=== PATIENT | female | born 1980 | race African-American/Black ===

== ENCOUNTER 2023-10-15 06:37 | Emergency (ER) | payer MEDICAID, SELFPAY ==
[2023-10-15 06:50] VITALS: BP 95/72; PULSE 80; RESP 20; TEMP 36.8; O2SAT 100; BMI 25.6
--- NOTE | 2023-10-15 07:01 | XRR_ITS ---
PROCEDURE INFORMATION: Exam: XR Chest Exam date and time: 10/15/2023 7:30 AM Age: 43 years old Clinical indication: Cough; Additional info: Chest pain, cough TECHNIQUE: Imaging protocol: Radiologic exam of the chest. Views: 2 views. COMPARISON: No relevant prior studies available. FINDINGS: Lungs: Unremarkable. No consolidation. Pleural spaces: Unremarkable. No pleural effusion. No pneumothorax. Heart/Mediastinum: Unremarkable. No cardiomegaly. Bones/joints: Unremarkable. XR/XR chest 2V* [id number] IMPRESSION: No acute findings.
[2023-10-15 07:02] VITALS: BP 95/72; PULSE 80; RESP 20; TEMP 36.8; O2SAT 100
--- NOTE | 2023-10-15 07:03 | ECG_ITS ---
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 Measurements Intervals [place] Rate: 77 P: 30 WA: 176 QRS: -2 QRSD: 82 T: 22 QT: 368 QTc: 417 Interpretive Statements SINUS RHYTHM INFERIOR MYOCARDIAL INFARCTION , PROBABLY OLD [40+ ms Q WAVE AND/OR ST/T ABNORMALITY IN II/aVF] No previous ECG available for comparison Electronically Signed On 10-15-2023 20:28:21 CDT by El Freeman M.D. [id number]
[2023-10-15 07:20] LABS: Basophils % 0.8 %; Eosinophils # 0.6 10^3/uL (0.0-0.8); Eosinophils % 11.7 %; Hematocrit 33.8 % (36-47); Lymphocytes # 1.8 10^3/uL (0.8-4.8); Lymphocytes % 38.2 %; Mean Corpuscular HGB Conc 32.2 g/dL (30-55); Mean Corpuscular Hemoglobin 27.3 pg (27-33); Mean Corpuscular Volume 84.5 fl (85-98); Mean Platelet Volume 11.4 fL (7.4-10.4); Monocytes # 0.4 10^3/uL (0.2-0.9); Monocytes % 9.2 %; Neutrophils % 39.9 %; Nucleated Red Blood Cells % 0 %; Platelet Count 189 10^3/cmm (157-399); Red Cell Distribution Width 14.1 % (12.1-15.1); White Blood Count 4.77 10^3/uL (3.29-11.43)
[2023-10-15 07:42] LABS: Alanine Aminotransferase 24 U/L (0-33); Albumin Level 3.5 g/dL (3.5-5.2); Alkaline Phosphatase 104 U/L (35-105); Blood Urea Nitrogen 12 mg/dL (6-20); Calcium 8.4 mg/dL (8.5-10.5); Carbon Dioxide 21 mmol/L (22-29); Chloride 103 mmol/L (98-107); Creatinine Clr Calc Pharmacy 125.7121; Glomerular Filtration Rate 162.2 mL/min (90-130); Glucose 93 mg/dL (65-115); Osmolality Calculated 279 mOsm/kg (285-295); Sodium 135 mmol/L (136-145); Total Bilirubin 0.2 mg/dL (0.15-1.2); Total Protein 6.5 g/dL (6.6-8.7)
[2023-10-15 07:43] LABS: Troponin(5th) Baseline < 6 ng/L (0-10)
[2023-10-15 07:45] LABS: Anion Gap 15.2 (5-19); Aspartate Amino Transferase 28 U/L (0-32); Potassium 4.2 mmol/L (3.5-5.1)
[2023-10-15 07:57] LABS: Add Urine Microscopic? NO; Charge for UA Resulting for Rev
[2023-10-15 08:03] LABS: Bilirubin Urine Neg (Negative); Blood Urine Neg (Negative); Glucose Urine UA Norm (Normal); Ketones Urine Negative (Negative); Leukocyte Esterase Urine Negative (Negative); Nitrate Urine Negative (Negative); Protein Urine Neg (Negative); Specific Gravity, Urine 1.015 (1.005-1.030); Urine Appearance Clear (CLEAR); Urine Color Yellow (Yellow); Urobilinogen Urine Norm (Negative); pH Urine 7 (5-7)
--- NOTE | 2023-10-15 08:16 | ED_ITS ---
HPI - Chest Pain 2 General: Chief Complaint: Upper Respiratory Infection Stated Complaint: CP WHEN COUGHING Time Seen by Provider: 10/15/23 06:52 History of Present Illness: This patient is a 43-year-old presenting with chest pain and cough. She reports that she has been coughing for 5 days. She has been coughing up copious amounts of sputum which she says is clear or white. The chest pain occurs with coughing but also intermittently at other times. She feels short of breath. She also has sinus congestion. She said that since moving to the area about a year and a half ago she has had problems with allergies. She does not take any allergy medications. She did try some Benadryl and a cough medicine [id number] without much relief. She reports a history of bipolar disorder but says she has not taken her meds in the last 2 days. She was concerned that with the chest pain it might be dangerous to continue her medicines. She also says that she has been told she has very high cholesterol. She is not on any medicines for that. She does not think she has a history of high blood pressure. She denies fevers or chills. No vomiting. She had diarrhea a few days ago but not since. No urinary symptoms. She is not a smoker and never has been a smoker. She denies current drug use or alcohol use. Physical Exam 2 Const: COMMON NORMALS: no acute distress, patient oriented x3, no limitations and alert GENERAL APPEARANCE: cooperative and comfortable HENMT: HEAD & SCALP: normal to inspection FACE & SINUS: normal facial exam Eye: GENERAL EYE: appearance normal, both eyes and all related structures Neck/C-Spine: COMMON NORMALS: supple, no meningeal signs and no JVD Chest: COMMONS NORMALS: normal inspection of the chest Resp: COMMON NORMALS: normal respiratory effort and No use of accessory muscles AUSCULTATION: wheezes (Scattered, mild) Cardio: COMMON NORMALS: no JVD, regular rate, regular rhythm and No murmurs present (Cardio) RATE: regular rate RHYTHM: regular rhythm GI: COMMON NORMALS: Normal to inspection, nondistended, normoactive bowel sounds present, Soft to palpation and non-tender INSPECTION: Yes normal to inspection AUSCULTATION: Yes normoactive bowel sounds PALPATION: Yes Soft to palpation Back/Pelvis: COMMON NORMALS: thoracic and lumbar spine normal to inspection Extremity: COMMON NORMALS: normal to inspection Neuro: COMMON NORMALS: patient oriented x3, moves all extremities, no focal motor deficits and no sensory deficits noted SENSORIUM/ORIENTATION: Yes alert MENINGEAL SIGNS: Yes no meningeal signs Psych: COMMON NORMALS: mental status grossly normal, cooperative and normal affect Skin: COMMON NORMALS: no rashes or lesions noted and turgor normal GENERAL SKIN EXAM: no rashes or lesions noted and turgor normal Course 2 Vital Signs: Vital signs: Vital Signs Temperature 98.2 F 10/15/23 07:02 Pulse Rate 74 10/15/23 09:04 Respiratory Rate 16 10/15/23 08:57 Blood Pressure 102/76 10/15/23 09:25 Pulse Oximetry 98 10/15/23 08:57 Oxygen Delivery Me thod Room Air 10/15/23 08:57 MDM - Chest Pain Medical Decision Making Chest pain is most likely related to the cough. However she does mention risk factors of markedly elevated hyper lipidemia. She does not have prior records here EKG, troponin. Chest x-ray to look for possible pneumonia. Labs and valproate level. Symptomatic treatment. Workup is negative including negative troponin x 2, COVID swab. She is anemic. Chest x-ray was clear. EKG with suggestion of prior inferior CT. No acute changes. Lab Data 10/15/23 07:14 10/15/23 07:14 Radiology Impressions Chest X-Ray 10/15/23 07:01 IMPRESSION: No acute findings. Laboratory Results WBC 4.77 10^3/uL (3.29-11.43) 10/15/23 07:14 RBC 4.00 10^6/uL (3.85-5.65) 10/15/23 07:14 Hgb 10.90 g/dL (11.27-16.99) L 10/15/23 07:14 Hct 33.8 % (36-47) L 10/15/23 07:14 MCV 84.5 fl (85-98) L 10/15/23 07:14 MCH 27.3 pg (27-33) 10/15/23 07:14 MCHC 32.2 g/dL (30-55) 10/15/23 07:14 RDW 14.1 % (12.1-15.1) 10/15/23 07:14 Plt Count 189 10^3/cmm (157-399) 10/15/23 07:14 MPV 11.4 fL (7.4-10.4) H 10/15/23 07:14 Neut % (Auto) 39.9 % 10/15/23 07:14 Lymph % (Auto) 38.2 % 10/15/23 07:14 [place] % (Auto) 9.2 % 10/15/23 07:14 Eos % (Auto) 11.7 % 10/15/23 07:14 Baso % (Auto) 0.8 % 10/15/23 07:14 Neut # (Auto) 1.90 10^3/uL (1.8-7.7) 10/15/23 07:14 Lymph # (Auto) 1.8 10^3/uL (0.8-4.8) 10/15/23 07:14 [place] # (Auto) 0.4 10^3/uL (0.2-0.9) 10/15/23 07:14 Eos # (Auto) 0.6 10^3/uL (0.0-0.8) 10/15/23 07:14 Baso # (Auto) 0.0 10^3/uL (0.0-0.1) 10/15/23 07:14 Nucleated RBC % (auto) 0 % 10/15/23 07:14 Nucleated RBCs # 0.0 /100WBC 10/15/23 07:14 Sodium 135 mmol/L (136-145) L 10/15/23 07:14 Potassium 4.2 mmol/L (3.5-5.1) 10/15/23 07:14 Chloride 103 mmol/L (98-107) 10/15/23 07:14 Carbon Dioxide 21 mmol/L (22-29) L 10/15/23 07:14 Anion Gap 15.2 (5-19) 10/15/23 07:14 BUN 12 mg/dL (6-20) 10/15/23 07:14 Creatinine 0.5 mg/dL (0.5-0.9) 10/15/23 07:14 GFR Calculation 162.2 mL/min (90-130) H 10/15/23 07:14 Glucose 93 mg/dL (65-115) 10/15/23 07:14 Calculated Osmolality 279 mOsm/kg (285-295) L 10/15/23 07:14 Calcium 8.4 mg/dL (8.5-10.5) L 10/15/23 07:14 Total Bilirubin 0.2 mg/dL (0.15-1.2) 10/15/23 07:14 AST 28 U/L (0-32) 10/15/23 07:14 ALT 24 U/L (0-33) 10/15/23 07:14 Alkaline Phosphatase 104 U/L (35-105) 10/15/23 07:14 Troponin T Baseline < 6 ng/L (0-10) 10/15/23 07:14 Troponin T 120 Minute 6.00 ng/L (0-10) 10/15/23 09:16 Delta Troponin T 0.71270 ABS# (0-10) 10/15/23 09:16 Total Protein 6.5 g/dL (6.6-8.7) L 10/15/23 07:14 Albumin 3.5 g/dL (3.5-5.2) 10/15/23 07:14 Globulin 3.0 g/dL (1.3-4.6) 10/15/23 07:14 Urine Color Yellow (Yellow) 10/15/23 07:50 Urine Appearance Clear (CLEAR) 10/15/23 07:50 Urine pH 7 (5-7) 10/15/23 07:50 Ur Specific [place] 1.015 (1.005-1.030) 10/15/23 07:50 Urine Protein Neg (Negative) 10/15/23 07:50 Urine Glucose (UA) Norm (Normal) 10/15/23 07:50 Urine Ketones Negative (Negative) 10/15/23 07:50 Urine Blood Neg (Negative) 10/15/23 07:50 Urine Nitrate Negative (Negative) 10/15/23 07:50 Urine Bilirubin Neg (Negative) 10/15/23 07:50 Urine Urobilinogen Norm mg/dL (Negative) 10/15/23 07:50 Ur Leukocyte Esterase Negative (Negative) 10/15/23 07:50 SARS-CoV-2 Ag (Rapid) negative (Negative) 10/15/23 Unknown XR interpretation done by ED provider, pending radiology final review Discharge Plan Discharge Patient Disposition: Home Clinical Impression: Allergic rhinitis, Allergic bronchitis, Chest pain, Anemia Condition: Stable Prescriptions: New cetirizine [Zyrtec] 10 mg tablet 10 mg PO DAILY Qty: 30 0RF prednisone 20 mg tablet 40 mg PO DAILY 3 Days Qty: 6 0RF Discharge Orders: Discharge ED (Routine); Ordered 10/15/23 Ordered By: Stefanie Mays Referrals: Truong Cuba MD [Staff Physician] - Patient Instructions: Opioid Safety, Pain Management Coding Level of Care Code ED National Sales Consultant for Alyx Mcpherson
[2023-10-15 08:57] VITALS: PULSE 78; RESP 16; O2SAT 98
[2023-10-15] MEDS: ipratropium-albuterol 3 mL Neb INHALATION (09:00)
[2023-10-15 09:04] VITALS: PULSE 74
[2023-10-15 09:25] VITALS: BP 102/76
[2023-10-15 09:43] LABS: Troponin 5 2HR Delta 0.00001 ABS# (0-10)
[2023-10-15 10:25] LABS: SARS Covid-2 Antigen negative (Negative)
== END 2023-10-15 11:15 | disposition home or self-care (01) ==
PROVIDERS: Emergency Provider Emergency Medicine
DX: J30.9 Allergic rhinitis, unspecified (principal); J45.909 Unspecified asthma, uncomplicated; R07.9 Chest pain, unspecified; D64.9 Anemia, unspecified; Z11.52 Encounter for screening for COVID-19
CPT/HCPCS: 36415; 71046; 80053; 81003; 84484; 85025; 87426; 93005; 94640; 99285

== ENCOUNTER 2023-11-25 01:34 | Emergency (ER) | payer MEDICAID, SELFPAY ==
[2023-11-25 01:36] VITALS: BP 117/73; PULSE 91; RESP 16; O2SAT 96; BMI 27.8
--- NOTE | 2023-11-25 01:59 | XRR_ITS ---
PROCEDURE INFORMATION: Exam: XR Abdomen Exam date and time: 11/25/2023 2:05 AM Age: 43 years old Clinical indication: Abdominal pain; Patient HX: C/O abd pain with constipation; Additional info: Abd pain constipation TECHNIQUE: Imaging protocol: Radiologic exam of the abdomen. Views: Frontal supine view of the abdomen. 1 View. COMPARISON: CR (CHEST, ) 10/15/2023 7:30 AM FINDINGS: Evaluation is limited due to patient body habitus. Gastrointestinal tract: Prominent colonic bowel gas and stool. Bones/joints: Unremarkable. Soft tissues: Panniculus and skin fold. XR/XR abdomen 1V* [id number] IMPRESSION: Prominent colonic bowel gas and stool.
--- NOTE | 2023-11-25 02:22 | ED_ITS ---
HPI - Abdominal Pain General: Chief Complaint: Abdominal Pain Stated Complaint: ABD PAIN Time Seen by Provider: 11/25/23 01:38 History of Present Illness: Patient was in the ER with complaints of lower abdominal pain starting about an hour ago. Patient says she feels her chest have a bowel movement but she is unable to. Patient denies any nausea vomiting fever chills. Review of Systems General: Reports: 10 or more systems reviewed and unremarkable except in HPI and below Physical Exam Const: COMMON NORMALS: no acute distress, average body habitus, patient oriented x3, no limitations, healthy appearing, alert and well nourished Neck/C-Spine: COMMON NORMALS: no JVD Resp: COMMON NORMALS: normal respiratory effort, No retractions, No use of accessory muscles and clear to auscultation bilaterally AUSCULTATION: clear to auscultation bilaterally Cardio: COMMON NORMALS: no JVD, regular rate, regular rhythm, S1 normal heart sound present, S2 normal heart sound present, No gallops present (Cardio), No clicks present (Cardio), No murmurs present (Cardio) and No rub (Cardio) RATE: regular rate RHYTHM: regular rhythm HEART SOUNDS: S1 normal heart sound present and S2 normal heart sound present GI: COMMON NORMALS: Normal to inspection, nondistended, normoactive bowel sounds present, Soft to palpation, non-tender, No hepatosplenomegaly present and no masses PALPATION: Yes Soft to palpation and Yes No hepatosplenomegaly present Neuro: COMMON NORMALS: patient oriented x3 SENSORIUM/ORIENTATION: Yes alert Course Vital Signs: Vital signs: Vital Signs Pulse Rate 91 11/25/23 01:36 Respiratory Rate 16 11/25/23 01:36 Blood Pressure 117/73 11/25/23 01:36 Pulse Oximetry 96 11/25/23 01:36 Oxygen Delivery Me thod Room Air 11/25/23 01:36 MDM - Abdominal Pain Medical Decision Making X-ray showed prominent stool. Patient was given Dulcolax 10 mg and Colace 200 mg here will she will be prescribed. SHEREEN Colace to go home with. Patient is to follow-up with her PCP within next 7 days for further evaluation and treatment. Differential Diagnosis Likely constipation Medical Records I reviewed the patient's medical records. Lab Data I reviewed the patient's lab results. XR interpretation done by ED provider, pending radiology final review Discharge Plan Discharge Patient Disposition: Home Clinical Impression: Constipation Qualifiers: Constipation type: unspecified constipation type Qualified Code(s): K59.00 - Constipation, unspecified Condition: Stable Prescriptions: New sennosides-docusate sodium 8.6-50 mg tablet 1 tab-cap PO BID PRN (Reason: constipation) Qty: 20 0RF No Action Zyrtec 10 mg tablet 10 mg PO DAILY Qty: 30 0RF Discharge Orders: Discharge ED (Routine); Ordered 11/25/23 Ordered By: Corbin Barreto Patient Instructions: Abdominal Pain - Adult, Constipation - Adult Activity Restrictions/Additional Instructions: Your x-ray showed you are full of stool. You have been given stool softeners as well as laxatives in the ER and a prescription was sent to your pharmacy. Please use them as directed. Please follow-up with your family practice physician within the next 7 days for further evaluation and treatment. Coding Level of Care Code ED Lock And Dam Operator for Alyx Mcpherson
[2023-11-25] MEDS: bisacodyl 5 mg Tablet 10 MG PO (02:34)
[2023-11-25] MEDS: docusate sodium 100 mg Capsule 200 MG PO (02:35)
[2023-11-25 02:39] VITALS: BP 111/86; PULSE 88; RESP 16; TEMP 36.7; O2SAT 99
== END 2023-11-25 02:40 | disposition home or self-care (01) ==
PROVIDERS: Emergency Provider Emergency Medicine
DX: K59.00 Constipation, unspecified (principal)
CPT/HCPCS: 74018; 99283

== ENCOUNTER 2024-05-14 01:04 | Emergency (ER) | payer MEDICAID, SELFPAY ==
[2024-05-14 01:06] VITALS: BP 156/104; PULSE 72; RESP 16; TEMP 36.7; O2SAT 97; BMI 31.1
--- NOTE | 2024-05-14 01:13 | W.ED.ABDPA2 ---
HPI - Abdominal Pain General: Chief Complaint: Abdominal Pain Stated Complaint: ABD PAIN Time Seen by Provider: 05/14/24 01:05 History of Present Illness: 43-year-old female who presents emerged with abdominal pain. She says she been having issues for about a week. She is been having normal bowel movements. She says she has been passing a lot of gas. Abdominal pain is diffuse she is tender throughout. She points mainly to the middle when asked where it hurts. No nausea or vomiting. She says she could hear her belly grumbling today which is why she called an ambulance to come to the emergency room. Related Data Date of Last Menstrual Period: 04/24/24 Previous Rx's Medication Instructions Recorded cetirizine 10 mg tablet (Zyrtec) 10 mg PO DAILY #30 tabs 10/15/23 sennosides 8.6 mg-docusate sodium 1 tab-cap PO BID PRN constipation 11/25/23 50 mg tablet #20 tabs Allergies Allergy/AdvReac Type Severity Reaction Status Date / Time No Known Allergies Allergy Verified 05/14/24 01:11 Review of Systems Narrative: Constitutional symptoms: Negative except as documented in HPI. Skin symptoms: Negative except as documented in HPI. Eye symptoms: Negative except as documented in HPI. ENMT symptoms: Negative except as documented in HPI. Respiratory symptoms: Negative except as documented in HPI. Cardiovascular symptoms: Negative except as documented in HPI. Gastrointestinal symptoms: Negative except as documented in HPI. Genitourinary symptoms: Negative except as documented in HPI. Musculoskeletal symptoms: Negative except as documented in HPI. Neurologic symptoms: Negative except as documented in HPI. Psychiatric symptoms: Negative except as documented in HPI. Endocrine symptoms: Negative except as documented in HPI. [facility] ED Female Reproductive History: Date of last menstrual period: 04/24/24 Physical Exam Narrative: EXAM NARRATIVE: General: Alert, no acute distress. Skin: Warm, dry. Head: Normocephalic, atraumatic. Neck: Supple, trachea midline. Eye: Extraocular movements are intact. Ears, nose, mouth and throat: mucosa moist. Cardiovascular: Regular, Normal peripheral perfusion. Respiratory: Lungs are clear to auscultation, respirations are non-labored, breath sounds are equal, Symmetrical chest wall expansion. Gastrointestinal: Soft, mild diffuse tenderness, Non distended Musculoskeletal: Normal ROM, no deformity. Neurological: Alert and oriented, No focal neurological deficit observed. Psychiatric: Cooperative, appropriate mood & affect. Course Vital Signs: Vital signs: Vital Signs Temperature 98.1 F 05/14/24 01:06 Pulse Rate 72 05/14/24 01:06 Respiratory Rate 16 05/14/24 01:06 Blood Pressure 156/104 05/14/24 01:06 Pulse Oximetry 97 05/14/24 01:06 Oxygen Delivery Me thod Room Air 05/14/24 01:06 MDM - Abdominal Pain Medical Decision Making Medical decision making: Differential diagnosis including but not limited to and based on the above HPI, review of systems and physical exam: In this patient with epigastric pain differential would include cholelithiasis or cholecystitis. Hepatitis. Diverticulitis. Constipation. UTI. colitis. small bowel obstruction. crohn's flare. pancreatitis. gastritis. peptic ulcer. also concern for acute cardiac event. Orders placed to evaluate differential diagnosis based on the above differential, HPI and physical exam Lab Review: Laboratory results were reviewed and interpreted by myself the emergency room physician. No leukocytosis. No anemia. No renal failure. Urinalysis is negative for infection. CT of the abdomen pelvis shows no acute process. She does have some stones in her gallbladder but no cholecystitis. This was reviewed and interpreted by myself the emergency room physician. I also reviewed the radiology report. I reviewed the patient's medical record. Reexamination: Patient remained stable. No increased work of breathing. No altered mental status. No focal motor deficits. Assessment and plan: Abdominal pain - Discharged home - Discussed plan with patient. Answered any questions. - Evaluation and treatment of this problem were appropriate in the emergency setting. Lab Data 05/14/24 01:17 05/14/24 01:17 Labs/Radiology: Radiology Impressions Abdomen/Pelvis CT 05/14/24 01:57 IMPRESSION: 1. Image quality degraded by motion artifact. 2. Cholelithiasis. Laboratory Results WBC 8.40 10^3/uL (3.29-11.43) 05/14/24 01:17 RBC 4.41 10^6/uL (3.85-5.65) 05/14/24 01:17 Hgb 11.70 g/dL (11.27-16.99) 05/14/24 01:17 Hct 36.2 % (36-47) 05/14/24 01:17 MCV 82.1 fl (85-98) L 05/14/24 01:17 MCH 26.5 pg (27-33) L 05/14/24 01:17 MCHC 32.3 g/dL (30-55) 05/14/24 01:17 RDW 13.9 % (12.1-15.1) 05/14/24 01:17 Plt Count 218 10^3/cmm (157-399) 05/14/24 01:17 MPV 11.7 fL (7.4-10.4) H 05/14/24 01:17 Neut % (Auto) 47.5 % 05/14/24 01:17 Lymph % (Auto) 37.7 % 05/14/24 01:17 [place] % (Auto) 7.1 % 05/14/24 01:17 Eos % (Auto) 6.7 % 05/14/24 01:17 Baso % (Auto) 0.6 % 05/14/24 01:17 Neut # (Auto) 3.99 10^3/uL (1.8-7.7) 05/14/24 01:17 Lymph # (Auto) 3.2 10^3/uL (0.8-4.8) 05/14/24 01:17 [place] # (Auto) 0.6 10^3/uL (0.2-0.9) 05/14/24 01:17 Eos # (Auto) 0.6 10^3/uL (0.0-0.8) 05/14/24 01:17 Baso # (Auto) 0.1 10^3/uL (0.0-0.1) 05/14/24 01:17 Nucleated RBC % (auto) 0 % 05/14/24 01:17 Nucleated RBCs # 0.0 /100WBC 05/14/24 01:17 Sodium 136 mmol/L (136-145) 05/14/24 01:17 Potassium 4.4 mmol/L (3.5-5.1) 05/14/24 01:17 Chloride 100 mmol/L (98-107) 05/14/24 01:17 Carbon Dioxide 24 mmol/L (22-29) 05/14/24 01:17 Anion Gap 16.4 (5-19) 05/14/24 01:17 BUN 19 mg/dL (6-20) 05/14/24 01:17 Creatinine 0.6 mg/dL (0.5-0.9) 05/14/24 01:17 GFR Calculation 131.4 mL/min (90-130) H 05/14/24 01:17 Glucose 100 mg/dL (65-115) 05/14/24 01:17 Calculated Osmolality 284 mOsm/kg (285-295) L 05/14/24 01:17 Lactic Acid 0.6 mmol/L (0.5-2.2) 05/14/24 01:17 Calcium 8.9 mg/dL (8.5-10.5) 05/14/24 01:17 Total Bilirubin 0.2 mg/dL (0.15-1.2) 05/14/24 01:17 AST 37 U/L (0-32) H 05/14/24 01:17 ALT 35 U/L (0-33) H 05/14/24 01:17 Alkaline Phosphatase 132 U/L (35-105) H 05/14/24 01:17 C-Reactive Protein 5.9 mg/L (0.0-4.9) H 05/14/24 01:17 Total Protein 7.6 g/dL (6.6-8.7) 05/14/24 01:17 Albumin 4.1 g/dL (3.5-5.2) 05/14/24 01:17 Globulin 3.5 g/dL (1.3-4.6) 05/14/24 01:17 Lipase 151 U/L (13-60) H 05/14/24 01:17 HCG, Qual Negative (Negative) 05/14/24 01:17 Urine Color Yellow (Yellow) 05/14/24 01:17 Urine Appearance Clear (CLEAR) 05/14/24 01:17 Urine pH 6.5 (5-7) 05/14/24 01:17 Ur Specific [place] 1.028 (1.005-1.030) 05/14/24 01:17 Urine Protein Negative (Negative) 05/14/24 01:17 Urine Glucose (UA) Negative (Normal) 05/14/24 01:17 Urine Ketones Trace (Negative) 05/14/24 01:17 Urine Blood Negative (Negative) 05/14/24 01:17 Urine Nitrate Negative (Negative) 01/07/25 01:17 Urine Bilirubin Negative (Negative) 05/14/24 01:17 Urine Urobilinogen 1.0 mg/dL (Negative) 05/14/24 01:17 Ur Leukocyte Esterase Negative (Negative) 05/14/24 01:17 Urine RBC 0-2 /hpf (0-2) 05/14/24 01:17 Urine WBC 0-5 /hpf (0-5) 05/14/24 01:17 Ur Squamous Epith Cells 0-5 /hpf (0-5) 05/14/24 01:17 Amorphous Sediment Not Reportable 05/14/24 01:17 Urine Bacteria None seen /hpf (NONE) 05/14/24 01:17 Hyaline Casts 0-4 /lpf H 05/14/24 01:17 All radiology interpretation(s) finalized by discharge Discharge Plan Discharge Patient Disposition: Home Clinical Impression: Abdominal pain Condition: Stable Prescriptions: No Action Zyrtec 10 mg tablet 10 mg PO DAILY Qty: 30 0RF sennosides-docusate sodium 8.6-50 mg tablet 1 tab-cap PO BID PRN (Reason: constipation) Qty: 20 0RF Discharge Orders: Discharge ED (Routine); Ordered 05/14/24 Ordered By: Belen Baez Discharge Diet: Advance as tolerated Discharge Activity: Increase activity as tolerated Patient Instructions: Abdominal Pain (ED), Opioid Safety, Pain Management Activity Restrictions/Additional Instructions: Thank you for choosing [facility] for your healthcare needs today. Please realize this is an emergency room and that we are providing you with a medical screening exam and this may not be complete and all inclusive of all the testing and or work up that you may need to determine your ailment or severity of your illness. You have been screened and evaluated and felt safe for discharge. Health conditions do change or evolve sometimes and as such it is important that you follow up with your Primary Doctor to be re checked, 3-5 days is a general good time frame for follow up. You are always welcome to return to the ED for re assessment if your symptoms are worsening or you have new concerns Coding Level of Care Code ED Assistant Infant Teacher for Alyx Mcpherson
[2024-05-14 01:25] LABS: Basophils # 0.1 10^3/uL (0.0-0.1); Basophils % 0.6 %; Eosinophils # 0.6 10^3/uL (0.0-0.8); Eosinophils % 6.7 %; Hematocrit 36.2 % (36-47); Lymphocytes # 3.2 10^3/uL (0.8-4.8); Lymphocytes % 37.7 %; Mean Corpuscular HGB Conc 32.3 g/dL (30-55); Mean Corpuscular Hemoglobin 26.5 pg (27-33); Mean Corpuscular Volume 82.1 fl (85-98); Mean Platelet Volume 11.7 fL (7.4-10.4); Monocytes # 0.6 10^3/uL (0.2-0.9); Monocytes % 7.1 %; Neutrophils # 3.99 10^3/uL (1.8-7.7); Neutrophils % 47.5 %; Nucleated Red Blood Cells % 0 %; Platelet Count 218 10^3/cmm (157-399); Red Blood Count 4.41 10^6/uL (3.85-5.65); Red Cell Distribution Width 13.9 % (12.1-15.1)
[2024-05-14 01:35] LABS: Bilirubin Urine Negative (Negative); Blood Urine Negative (Negative); Glucose Urine UA Negative (Normal); Ketones Urine Trace (Negative); Leukocyte Esterase Urine Negative (Negative); Nitrate Urine Negative (Negative); Protein Urine Negative (Negative); Specific Gravity, Urine 1.028 (1.005-1.030); Urine Appearance Clear (CLEAR); Urine Color Yellow (Yellow); pH Urine 6.5 (5-7)
[2024-05-14 01:36] LABS: HCG Qualitative Urine. Negative (Negative)
[2024-05-14 01:37] LABS: Bacteria Urine None Seen /hpf; Hyaline Casts Urine 0-4 /lpf; RBC Urine 0-2 /hpf (0-2); Squamous Epithelial Cell Urine 0-5 /hpf (0-5); WBC Urine 0-5 /hpf (0-5)
[2024-05-14 01:44] LABS: Alanine Aminotransferase 35 U/L (0-33); Albumin Level 4.1 g/dL (3.5-5.2); Alkaline Phosphatase 132 U/L (35-105); Anion Gap 16.4 (5-19); Aspartate Amino Transferase 37 U/L (0-32); Blood Urea Nitrogen 19 mg/dL (6-20); C Reactive Protein 5.9 mg/L (0.0-4.9); Carbon Dioxide 24 mmol/L (22-29); Chloride 100 mmol/L (98-107); Creatinine Clr Calc Pharmacy 110.7214; Globulin 3.5 g/dL (1.3-4.6); Glomerular Filtration Rate 131.4 mL/min (90-130); Glucose 100 mg/dL (65-115); Lipase 151 U/L (13-60); Osmolality Calculated 284 mOsm/kg (285-295); Potassium 4.4 mmol/L (3.5-5.1); Sodium 136 mmol/L (136-145); Total Bilirubin 0.2 mg/dL (0.15-1.2); Total Protein 7.6 g/dL (6.6-8.7)
[2024-05-14 01:45] LABS: Lactic Sepsis W/Reflex 0.6 mmol/L (0.5-2.2)
[2024-05-14 01:54] LABS: Calcium 8.9 mg/dL (8.5-10.5)
--- NOTE | 2024-05-14 01:57 | CTR_ITS ---
PROCEDURE INFORMATION: Exam: CT Abdomen And Pelvis With Contrast Exam date and time: 05/14/2024 2:03 AM Age: 43 years old Clinical indication: Abdominal pain; Generalized TECHNIQUE: Imaging protocol: Computed tomography of the abdomen and pelvis with contrast. Radiation optimization: All CT scans at this facility use at least one of these dose optimization techniques: automated exposure control; mA and/or kV adjustment per patient size (includes targeted exams where dose is matched to clinical indication); or iterative reconstruction. Contrast material: OMNI 350; Contrast volume: 100 ml; Contrast route: INTRAVENOUS (IV); COMPARISON: CR XR abdomen 1V* [id number] 11/25/2023 2:05 AM RADIATION DOSE METRICS: Total DLP (mGy-cm): 979.79 FINDINGS: Diaphragm: Small hiatal hernia. Liver: Normal. No mass. Gallbladder and biliary ducts: Tiny gallstones without gallbladder wall thickening or pericholecystic fluid. No ductal dilation. Pancreas: Normal. No ductal dilation. Spleen: Normal. No splenomegaly. Adrenal glands: Normal. No mass. Kidneys and ureters: Normal. No hydronephrosis. Stomach and bowel: Unremarkable. No obstruction. No mucosal thickening. Appendix: No evidence of appendicitis. Intraperitoneal space: Unremarkable. No free air. No significant fluid collection. Vasculature: Unremarkable. No abdominal aortic aneurysm. Lymph nodes: Unremarkable. No enlarged lymph nodes. Urinary bladder: Unremarkable as visualized. Reproductive: Unremarkable as visualized. Bones/joints: Unremarkable. No acute fracture. Soft tissues: Unremarkable. Other findings: Image quality degraded by motion artifact. CT/CT abdomen pelvis w con* [id number] IMPRESSION: 1. Image quality degraded by motion artifact. 2. Cholelithiasis.
[2024-05-14] MEDS: iohexol 350 mg/mL 500 mL Btl (per mL) IV (02:20)
[2024-05-14 03:00] VITALS: BP 124/91; PULSE 67; RESP 16; O2SAT 98
== END 2024-05-14 03:02 | disposition home or self-care (01) ==
PROVIDERS: Emergency Provider Emergency Medicine
DX: R10.9 Unspecified abdominal pain (principal)
CPT/HCPCS: 74177; 80053; 81001; 81025; 83605; 83690; 85025; 86140; 99285

== ENCOUNTER 2024-07-08 02:09 | Emergency (ER) | payer MEDICAID, SELFPAY ==
[2024-07-08 02:17] VITALS: BMI 30.2
--- NOTE | 2024-07-08 03:00 | XRR_ITS ---
PROCEDURE INFORMATION: Exam: XR Abdomen Exam date and time: 07/08/2024 3:02 AM Age: 43 years old Clinical indication: Abdominal pain; C/O diffuse abd pain with constipation; Additional info: Abd pain constipation TECHNIQUE: Imaging protocol: Radiologic exam of the abdomen. Views: Frontal supine view of the abdomen. 1 View. COMPARISON: CT abdomen pelvis w con* [id number] 05/14/2024 2:03 AM FINDINGS: Gastrointestinal tract: Moderate colonic stool burden suggests constipation. Normal bowel gas pattern. Bones/joints: Unremarkable. XR/XR KUB portable [id number] IMPRESSION: Probable constipation.
[2024-07-08 03:14] LABS: Basophils # 0.1 10^3/uL (0.0-0.1); Basophils % 0.8 %; Eosinophils # 0.5 10^3/uL (0.0-0.8); Eosinophils % 7.4 %; Hematocrit 34.1 % (36-47); Lymphocytes # 2.4 10^3/uL (0.8-4.8); Lymphocytes % 38.7 %; Mean Corpuscular HGB Conc 32.3 g/dL (30-55); Mean Corpuscular Hemoglobin 26.4 pg (27-33); Mean Platelet Volume 11.8 fL (7.4-10.4); Monocytes # 0.6 10^3/uL (0.2-0.9); Monocytes % 10.4 %; Neutrophils # 2.62 10^3/uL (1.8-7.7); Neutrophils % 42.4 %; Nucleated Red Blood Cells % 0 %; Platelet Count 208 10^3/cmm (157-399); Red Blood Count 4.16 10^6/uL (3.85-5.65); White Blood Count 6.18 10^3/uL (3.29-11.43)
--- NOTE | 2024-07-08 03:22 | W.ED.GENADLT ---
HPI - General Adult General: Chief complaint: General Medical Stated complaint: Not Hungry\Weakness Time Seen by Provider: 07/08/24 02:29 History of Present Illness: 43-year-old female here with generalized abdominal pain, loss of appetite, and no bowel movement for at least 7 days she says. No fever, no vomiting, no blood in the stool. No history of abdominal surgery. Related Data Previous Rx's ?Medication ?Instructions ?Recorded cetirizine 10 mg tablet (Zyrtec) 10 mg PO DAILY #30 tabs 10/15/23 sennosides 8.6 mg-docusate sodium 1 tab-cap PO BID PRN constipation 11/25/23 50 mg tablet #20 tabs lactulose 10 gram/15 mL oral 20 g (30 mL) PO BID #1,200 mL 07/08/24 solution magnesium citrate (Citrate of 300 ml PO DAILY #296 mL 07/08/24 Magnesia oral) Allergies Allergy/AdvReac Type Severity Reaction Status Date / Time No Known Allergies Allergy Verified 07/08/24 02:15 Physical Exam Const: COMMON NORMALS: no acute distress GENERAL APPEARANCE: cooperative; not ill appearing and not frail appearing HENMT: COMMON NORMALS: normocephalic, atraumatic and Normal external nose present HEAD & SCALP: normocephalic and atraumatic FACE & SINUS: normal facial exam and face symmetric NOSE: Normal external nose present Eye: COMMON NORMALS: Equal, round and reactive pupils present and EOMs intact bilaterally PUPIL: Yes Equal, round and reactive pupils present Neck/C-Spine: GENERAL: Yes trachea midline Chest: CHEST: Yes Symmetrical chest wall rise Resp: COMMON NORMALS: normal respiratory effort, No retractions, No use of accessory muscles and clear to auscultation bilaterally AUSCULTATION: clear to auscultation bilaterally Cardio: COMMON NORMALS: regular rate and regular rhythm RATE: regular rate RHYTHM: regular rhythm GI: COMMON NORMALS: Normal to inspection, nondistended, normoactive bowel sounds present PALPATION: Yes Tenderness to palpation present (GI) (mild diffuse) Extremity: COMMON NORMALS: no pedal edema Neuro: AN[place] COMA SCALE: document GCS findings [place] coma scale eye opening: Spontaneous [place] coma scale verbal response: Orientated [place] coma scale motor response: Obey commands [place] coma scale total score: 15 SENSORY EXAM: Yes extremities (intact) Psych: COMMON NORMALS: speech normal SPEECH: Yes normal speech Skin: COMMON NORMALS: no rashes or lesions noted GENERAL SKIN EXAM: no rashes or lesions noted [facility] - General Adult Medical Decision Making Hemoglobin 11. CBC is otherwise normal as is BMP. Lipase is 34. Liver enzymes are minimally elevated. Bilirubin is 0.2. CRP is 3.3. KUB shows constipation. She will be given magnesium citrate followed by lactulose. We will ask surgery to see her, as this is the third or fourth time she has been seen for constipation issues with decreased appetite. Colonoscopy may be recommended. Return for new or worsening symptoms. Lab Data 07/08/24 02:57 07/08/24 02:57 Radiology Impressions KUB X-Ray 07/08/24 03:00 IMPRESSION: Probable constipation. Laboratory Results WBC 6.18 10^3/uL (3.29-11.43) 07/08/24 02:57 RBC 4.16 10^6/uL (3.85-5.65) 07/08/24 02:57 Hgb 11.00 g/dL (11.27-16.99) L 07/08/24 02:57 Hct 34.1 % (36-47) L 07/08/24 02:57 MCV 82.0 fl (85-98) L 07/08/24 02:57 MCH 26.4 pg (27-33) L 07/08/24 02:57 MCHC 32.3 g/dL (30-55) 07/08/24 02:57 RDW 14.0 % (12.1-15.1) 07/08/24 02:57 Plt Count 208 10^3/cmm (157-399) 07/08/24 02:57 MPV 11.8 fL (7.4-10.4) H 07/08/24 02:57 Neut % (Auto) 42.4 % 07/08/24 02:57 Lymph % (Auto) 38.7 % 07/08/24 02:57 [place] % (Auto) 10.4 % 07/08/24 02:57 Eos % (Auto) 7.4 % 07/08/24 02:57 Baso % (Auto) 0.8 % 07/08/24 02:57 Neut # (Auto) 2.62 10^3/uL (1.8-7.7) 07/08/24 02:57 Lymph # (Auto) 2.4 10^3/uL (0.8-4.8) 07/08/24 02:57 [place] # (Auto) 0.6 10^3/uL (0.2-0.9) 07/08/24 02:57 Eos # (Auto) 0.5 10^3/uL (0.0-0.8) 07/08/24 02:57 Baso # (Auto) 0.1 10^3/uL (0.0-0.1) 07/08/24 02:57 Nucleated RBC % (auto) 0 % 07/08/24 02:57 Nucleated RBCs # 0.0 /100WBC 07/08/24 02:57 Sodium 136 mmol/L (136-145) 07/08/24 02:57 Potassium 3.9 mmol/L (3.5-5.1) 07/08/24 02:57 Chloride 104 mmol/L (98-107) 07/08/24 02:57 Carbon Dioxide 22 mmol/L (22-29) 07/08/24 02:57 Anion Gap 13.9 (5-19) 07/08/24 02:57 BUN 13 mg/dL (6-20) 07/08/24 02:57 Creatinine 0.7 mg/dL (0.5-0.9) 07/08/24 02:57 GFR Calculation 110.0 mL/min (90-130) 07/08/24 02:57 Glucose 115 mg/dL (65-115) 07/08/24 02:57 Calculated Osmolality 283 mOsm/kg (285-295) L 07/08/24 02:57 Calcium 8.9 mg/dL (8.5-10.5) 07/08/24 02:57 Total Bilirubin 0.2 mg/dL (0.15-1.2) 07/08/24 02:57 AST 33 U/L (0-32) H 07/08/24 02:57 ALT 37 U/L (0-33) H 07/08/24 02:57 Alkaline Phosphatase 115 U/L (35-105) H 07/08/24 02:57 C-Reactive Protein 3.3 mg/L (0.0-4.9) 07/08/24 02:57 Total Protein 7.3 g/dL (6.6-8.7) 07/08/24 02:57 Albumin 3.9 g/dL (3.5-5.2) 07/08/24 02:57 Globulin 3.4 g/dL (1.3-4.6) 07/08/24 02:57 Lipase 34 U/L (13-60) 07/08/24 02:57 HCG, Qual Negative (Negative) 07/08/24 02:57 Urine Color Yellow (Yellow) 07/08/24 02:57 Urine Appearance Cloudy (CLEAR) A 07/08/24 02:57 Urine pH 5.5 (5-7) 07/08/24 02:57 Ur Specific [place] 1.023 (1.005-1.030) 07/08/24 02:57 Urine Protein 1+ (Negative) A 07/08/24 02:57 Urine Glucose (UA) Negative (Normal) 07/08/24 02:57 Urine Ketones Trace (Negative) 07/08/24 02:57 Urine Blood 3+ (Negative) A 07/08/24 02:57 Urine Nitrate Negative (Negative) 07/08/24 02:57 Urine Bilirubin Negative (Negative) 07/08/24 02:57 Urine Urobilinogen 1.0 mg/dL (Negative) 07/08/24 02:57 Ur Leukocyte Esterase Negative (Negative) 07/08/24 02:57 Urine RBC 0-4 /hpf (0-2) H 07/08/24 02:57 Urine WBC 10-15 /hpf (0-5) H 07/08/24 02:57 Ur Squamous Epith Cells Too numerous to cnt /hpf (0-5) H 07/08/24 02:57 Calcium Oxalate Crystal 0-4 /hpf H 07/08/24 02:57 Amorphous Sediment Not Reportable 07/08/24 02:57 Urine Bacteria 2+ /hpf (NONE) H 07/08/24 02:57 All radiology interpretation(s) finalized by discharge Discharge Plan Discharge Patient Disposition: Home Clinical Impression: Constipation Condition: Stable Prescriptions: New magnesium citrate [Citrate of Magnesia] Solution 300 ml PO DAILY Qty: 296 0RF lactulose 10 gram/15 mL solution 20 g PO BID Qty: 1200 0RF No Action Zyrtec 10 mg tablet 10 mg PO DAILY Qty: 30 0RF sennosides-docusate sodium 8.6-50 mg tablet 1 tab-cap PO BID PRN (Reason: constipation) Qty: 20 0RF Discharge Orders: Discharge ED (Routine); Ordered 07/08/24 Ordered By: Rob Harris Patient Instructions: Constipation (ED), Opioid Safety, Pain Management Activity Restrictions/Additional Instructions: Case management has been asked to make you a follow-up appointment with the surgery clinic for further evaluation of your constipation and loss of appetite. You should get a call from them this week. Return for any problems. Medication as directed. If your stool becomes very soft, you may decrease the lactulose to once daily, or stop altogether. Print Language: Malawian Coding Level of Care Code ED Revenue Enforcement Collection Agent for Alyx Mcpherson
[2024-07-08 03:35] LABS: Bilirubin Urine Negative (Negative); Blood Urine 3+ (Negative); Glucose Urine UA Negative (Normal); Ketones Urine Trace (Negative); Leukocyte Esterase Urine Negative (Negative); Nitrate Urine Negative (Negative); Protein Urine 1+ (Negative); Specific Gravity, Urine 1.023 (1.005-1.030); Urine Appearance Cloudy (CLEAR); Urine Color Yellow (Yellow); pH Urine 5.5 (5-7)
[2024-07-08 03:36] LABS: HCG, Serum Qual Negative (Negative)
[2024-07-08 03:43] LABS: Alanine Aminotransferase 37 U/L (0-33); Albumin Level 3.9 g/dL (3.5-5.2); Alkaline Phosphatase 115 U/L (35-105); Aspartate Amino Transferase 33 U/L (0-32); Blood Urea Nitrogen 13 mg/dL (6-20); C Reactive Protein 3.3 mg/L (0.0-4.9); Calcium 8.9 mg/dL (8.5-10.5); Carbon Dioxide 22 mmol/L (22-29); Chloride 104 mmol/L (98-107); Creatinine Clr Calc Pharmacy 93.4352; Globulin 3.4 g/dL (1.3-4.6); Glucose 115 mg/dL (65-115); Lipase 34 U/L (13-60); Osmolality Calculated 283 mOsm/kg (285-295); Sodium 136 mmol/L (136-145); Total Bilirubin 0.2 mg/dL (0.15-1.2); Total Protein 7.3 g/dL (6.6-8.7)
[2024-07-08 03:49] LABS: Anion Gap 13.9 (5-19); Potassium 3.9 mmol/L (3.5-5.1)
[2024-07-08 03:51] LABS: Add Urine Microscopic? YES; Bacteria Urine 2+ /hpf; RBC Urine 0-4 /hpf (0-2); Squamous Epithelial Cell Urine TOO NUMEROUS TO CNT /hpf (0-5)
[2024-07-08 03:52] LABS: Add Urine Culture? No; Calcium Oxalate Crystals Urine 0-4 /hpf
== END 2024-07-08 04:36 | disposition home or self-care (01) ==
PROVIDERS: Emergency Provider Emergency Medicine
DX: K59.00 Constipation, unspecified (principal)
CPT/HCPCS: 36415; 74018; 80053; 81001; 83690; 84703; 85025; 86140; 99284

== ENCOUNTER 2024-07-21 22:13 | Emergency (ER) | payer MEDICAID, SELFPAY ==
[2024-07-21 22:27] VITALS: BP 110/75; PULSE 85; RESP 16; TEMP 36.7; O2SAT 99; BMI 30.2
--- NOTE | 2024-07-21 22:40 | ECG_ITS ---
[employer] Test Date: 2024-07-21 Pat Name: Steph Garber Department: Room: Gender: Female High Reach Operator: : 1980 Requested By: Huey Hdez Order Number: [id number] Reading MD: SIMEON PINK Measurements Intervals [place] Rate: 81 P: 31 NM: 176 QRS: -3 QRSD: 81 T: 40 QT: 344 QTc: 400 Interpretive Statements SINUS RHYTHM POSSIBLE ANTERIOR MYOCARDIAL INFARCTION , PROBABLY OLD [30 ms Q WAVE IN V3/V4, OR R < 0.2 mV IN V4] Compared to ECG 10/15/2023 07:43:42 No significant changes Electronically Signed On 07-22-2024 18:06:20 CDT by SIMEON PINK [email or web address]
--- NOTE | 2024-07-21 23:33 | XRR_ITS ---
PROCEDURE INFORMATION: Exam: XR Chest Exam date and time: 07/21/2024 11:44 PM Age: 43 years old Clinical indication: Chest pressure and chest wall pain; Additional info: Chest pain TECHNIQUE: Imaging protocol: Radiologic exam of the chest. Views: 1 view. COMPARISON: CR XR chest 2V* [id number] 10/15/2023 7:30 AM FINDINGS: Lungs: Unremarkable. No consolidation. Pleural spaces: Unremarkable. No pleural effusion. No pneumothorax. Heart/Mediastinum: Unremarkable. No cardiomegaly. Bones/joints: Unremarkable. XR/XR chest 1V portable [id number] IMPRESSION: No acute findings.
--- NOTE | 2024-07-21 23:34 | ED_ITS ---
HPI - Chest Pain General: Chief Complaint: Chest Pain Stated Complaint: Back of Neck\Back and Left Arm Pain\Numb Time Seen by Provider: 07/21/24 22:53 Related Data Home Medications ?Medication ?Instructions ?Recorded ?Confirmed polyethylene glycol 3350 17 g PO BID 07/09/24 07/09/24 gram/dose oral powder (Gavilax) Previous Rx's ?Medication ?Instructions ?Recorded cetirizine 10 mg tablet (Zyrtec) 10 mg PO DAILY #30 ta bs 10/15/23 sennosides 8.6 mg-docusate sodium 1 tab-cap PO BID PRN constipation 11/25/23 50 mg tablet #20 tabs lactulose 10 gram/15 mL oral 20 g (30 mL) PO BID #1,20 0 mL 07/08/24 solution magnesium citrate (Citrate of 300 ml PO DAILY #296 mL 07/08/24 Magnesia oral) linaclotide 145 mcg capsule 145 mcg PO DAILY 30 days # 30 caps 07/09/24 (Linzess) Allergies Allergy/AdvReac Type Severity Reaction Status Date / Time tree nut Allergy itchy Verified 07/21/24 22:37 throat [facility] ED PFSH: Social History Smoking and tobacco/nicotine status: never used tobacco/nicotine Course Vital Signs: Vital signs: Vital Signs Temperature 98.1 F 07/21/24 22:27 Pulse Rate 85 07/21/24 22:27 Respiratory Rate 16 07/21/24 22:27 Blood Pressure 110/75 07/21/24 22:27 Pulse Oximetry 99 07/21/24 22:27 Oxygen Delivery Tn thod Room Air 07/21/24 22:27 Discharge Plan Discharge Condition: Stable Prescriptions: No Action polyethylene glycol 3350 [Gavilax] 17 gram/dose powder PO BID Linzess 145 mcg capsule 145 mcg PO DAILY 30 Days Qty: 30 3RF Zyrtec 10 mg tablet 10 mg PO DAILY Qty: 30 0RF magnesium citrate [Citrate of Magnesia] Solution 300 ml PO DAILY Qty: 296 0RF lactulose 10 gram/15 mL solution 20 g PO BID Qty: 1200 0RF sennosides-docusate sodium 8.6-50 mg tablet 1 tab-cap PO BID PRN (Reason: constipation) Qty: 20 0RF Print Language: Belarusian Coding Level of Care Code ED Auction Assistant for Alyx Mcpherson
--- NOTE | 2024-07-21 23:40 | W.ED.GENADLT ---
HPI - General Adult General: Chief complaint: Chest Pain Stated complaint: Back of Neck\Back and Left Arm Pain\Numb Time Seen by Provider: 07/21/24 22:53 Source: patient Mode of arrival: ambulatory Limitations: no limitations History of Present Illness: Patient is a 43-year-old female presents to ED today with multiple medical complaints. She tells me she is having bilateral shoulder pain as well as neck and back pain. She also is telling me she is having chest pain. She also feels symptoms in my head . Patient is not very good about elaborating on her symptoms. She does feel like symptoms started approximately 2 days ago. Patient tells me she is only here so I can check some things out make sure she does not have anything major and to rule out a stroke . She agrees that she does not have any stroke like symptoms upon arrival. States she recently started Linzess for chronic constipation and wonders if her symptoms could be related to this. She is also having allergy symptoms of increased sputum production. She states these have been present ever since I moved to the area 3 years ago . Onset (ago): day(s) Severity: mild Relieving factors: none Exacerbating factors: none Associated symptoms: Reports chest pain; Deny confusion, dyspnea, malaise, nausea, rash, palpitations, syncope or vomiting Treatments prior to arrival: none Related Data Home Medications ?Medication ?Instructions ?Recorded ?Confirmed polyethylene glycol 3350 17 g PO BID 07/09/24 07/09/24 gram/dose oral powder (Gavilax) Previous Rx's ?Medication ?Instructions ?Recorded cetirizine 10 mg tablet (Zyrtec) 10 mg PO DAILY #30 tabs 10/15/23 sennosides 8.6 mg-docusate sodium 1 tab-cap PO BID PRN constipation 11/25/23 50 mg tablet #20 tabs lactulose 10 gram/15 mL oral 20 g (30 mL) PO BID #1,200 mL 07/08/24 solution magnesium citrate (Citrate of 300 ml PO DAILY #296 mL 07/08/24 Magnesia oral) linaclotide 145 mcg capsule 145 mcg PO DAILY 30 days #30 caps 07/09/24 (Linzess) Allergies Allergy/AdvReac Type Severity Reaction Status Date / Time tree nut Allergy itchy Verified 07/21/24 22:37 throat Review of Systems Const: Denies: fever(s), chills, body aches, fatigue or malaise Eyes: Denies: change in vision, blurry vision, photophobia, floaters or seeing flashes ENMT: Denies: throat pain, odynophagia, ear or mastoid pain or nasal congestion Card: Reports: chest pain; Denies: palpitations, irregular heart rhythm, edema, swelling of feet/ankles, lightheadedness, syncope, pre-syncope, dyspnea on exertion, orthopnea, leg pain with exertion or acrocyanosis Resp: Denies: dyspnea, productive cough or pain on inspiration GI: Reports: constipation; Denies: abdominal pain, nausea, vomiting, heartburn or diarrhea : Denies: flank pain, difficulty voiding, dysuria, urinary frequency or urinary urgency Musc: Reports: neck pain and back pain; Denies: extremity pain, extremity swelling, joint pain, joint swelling or joint redness Skin/Breast: Denies: rash Neuro: Denies: numbness in extremities, weakness in extremities, sensory changes, difficulty walking, dizziness, confusion or seizure-like activity [facility] ED PFSH: Social History Smoking and tobacco/nicotine status: never used tobacco/nicotine Physical Exam Const: COMMON NORMALS: no acute distress, patient oriented x3, no limitations, alert and well nourished GENERAL APPEARANCE: cooperative NUTRITIONAL APPEARANCE: overweight ORIENTATION/CONSCIOUSNESS: Yes awake, Yes oriented to person, Yes oriented to place and Yes oriented to time HENMT: COMMON NORMALS: normocephalic and atraumatic HEAD & SCALP: normal to inspection, normocephalic and atraumatic FACE & SINUS: normal facial exam and face symmetric MOUTH: Normal oral and palatal mucosa present and lip normal THROAT: posterior oropharynx normal and tonsils normal Eye: GENERAL EYE: appearance normal, both eyes and all related structures Neck/C-Spine: COMMON NORMALS: full ROM, no lymphadenopathy, supple, no meningeal signs and no JVD GENERAL: Yes normal visual inspection, Yes trachea midline, No anterior neck swelling and No submandibular swelling CERVICAL SPINE: Yes cervical ROM normal, No pain with cervical ROM, No Cervical spine tenderness, No step off deformity, No Paracervical muscle tenderness and No Paracervical spasm Chest: COMMONS NORMALS: normal inspection of the chest and normal palpation of entire chest wall Resp: COMMON NORMALS: normal respiratory effort and clear to auscultation bilaterally AUSCULTATION: clear to auscultation bilaterally Cardio: COMMON NORMALS: no JVD, regular rate and regular rhythm RATE: regular rate RHYTHM: regular rhythm GI: COMMON NORMALS: Normal to inspection, nondistended, normoactive bowel sounds present, Soft to palpation, non-tender, No hepatosplenomegaly present and no masses PALPATION: Yes Soft to palpation and Yes No hepatosplenomegaly present : COMMON NORMALS: Yes no CVA tenderness BLADDER/KIDNEY EXAM: Yes no CVA tenderness Back/Pelvis: COMMON NORMALS: no CVA tenderness and thoracic and lumbar spine normal to inspection Extremity: COMMON NORMALS: normal to inspection, capillary refill normal, no clubbing, cyanosis or edema, no calf tenderness and no pedal edema GENERAL: Yes normal exam except as noted Neuro: [place] COMA SCALE: document GCS findings [place] coma scale eye opening: Spontaneous [place] coma scale verbal response: Orientated [place] coma scale motor response: Obey commands [place] coma scale total score: 15 COMMON NORMALS: patient oriented x3, CN's II-XII intact bilaterally, moves all extremities, no focal motor deficits, no sensory deficits noted and gait normal SENSORIUM/ORIENTATION: Yes alert, Yes oriented to person, Yes oriented to place and Yes oriented to time MENINGEAL SIGNS: Yes no meningeal signs Skin: COMMON NORMALS: no rashes or lesions noted GENERAL SKIN EXAM: no rashes or lesions noted Course Vital Signs: Vital signs: Vital Signs Temperature 98.1 F 07/21/24 22:27 Pulse Rate 75 07/21/24 23:49 Respiratory Rate 16 07/21/24 22:27 Blood Pressure 124/91 07/21/24 23:49 Pulse Oximetry 100 07/21/24 23:49 Oxygen Delivery Me thod Room Air 07/21/24 23:49 MDM - General Adult Medical Decision Making Patient clinically appears in absolutely no acute distress. Her vital signs are stable. She is here for multiple medical complaints beginning 2 days ago. She later does tell me about chronic pain involving her neck. Upon re-examination, she is sleeping comfortably. Patient's blood work here is nonactionable. Her chest x-ray was unremarkable. EKG nonischemic and without abnormal arrhythmia. She will be allowed discharge with recommendations to follow-up with her primary care provider. Return to ED precautions discussed. Medical Records I reviewed the patient's medical records. Lab Data I reviewed the patient's lab results. 07/21/24 23:46 07/21/24 23:46 Laboratory Results WBC 6.96 10^3/uL (3.29-11.43) 07/21/24 23:46 RBC 4.43 10^6/uL (3.85-5.65) 07/21/24 23:46 Hgb 11.50 g/dL (11.27-16.99) 07/21/24 23:46 Hct 39.3 % (36-47) 07/21/24 23:46 MCV 88.7 fl (85-98) 07/21/24 23:46 MCH 26.0 pg (27-33) L 07/21/24 23:46 MCHC 29.3 g/dL (30-55) L 07/21/24 23:46 RDW 14.1 % (12.1-15.1) 07/21/24 23:46 Plt Count 200 10^3/cmm (157-399) 07/21/24 23:46 MPV 11.4 fL (7.4-10.4) H 07/21/24 23:46 Neut % (Auto) 47.5 % 07/21/24 23:46 Lymph % (Auto) 37.2 % 07/21/24 23:46 [place] % (Auto) 9.2 % 07/21/24 23:46 Eos % (Auto) 5.2 % 07/21/24 23:46 Baso % (Auto) 0.6 % 07/21/24 23:46 Neut # (Auto) 3.31 10^3/uL (1.8-7.7) 07/21/24 23:46 Lymph # (Auto) 2.6 10^3/uL (0.8-4.8) 07/21/24 23:46 [place] # (Auto) 0.6 10^3/uL (0.2-0.9) 07/21/24 23:46 Eos # (Auto) 0.4 10^3/uL (0.0-0.8) 07/21/24 23:46 Baso # (Auto) 0.0 10^3/uL (0.0-0.1) 07/21/24 23:46 Nucleated RBC % (auto) 0 % 07/21/24 23:46 Nucleated RBCs # 0.0 /100WBC 07/21/24 23:46 Sodium 134 mmol/L (136-145) L 07/21/24 23:46 Potassium 4.1 mmol/L (3.5-5.1) 07/21/24 23:46 Chloride 103 mmol/L (98-107) 07/21/24 23:46 Carbon Dioxide 21 mmol/L (22-29) L 07/21/24 23:46 Anion Gap 14.1 (5-19) 07/21/24 23:46 BUN 10 mg/dL (6-20) 07/21/24 23:46 Creatinine 0.6 mg/dL (0.5-0.9) 07/21/24 23:46 GFR Calculation 131.4 mL/min (90-130) H 07/21/24 23:46 Glucose 96 mg/dL (65-115) 07/21/24 23:46 Calculated Osmolality 277 mOsm/kg (285-295) L 07/21/24 23:46 Calcium 9.0 mg/dL (8.5-10.5) 07/21/24 23:46 Total Bilirubin 0.3 mg/dL (0.15-1.2) 07/21/24 23:46 AST 29 U/L (0-32) 07/21/24 23:46 ALT 29 U/L (0-33) 07/21/24 23:46 Alkaline Phosphatase 98 U/L (35-105) 07/21/24 23:46 Troponin T Baseline < 6 ng/L (0-10) 07/21/24 23:46 Total Protein 7.6 g/dL (6.6-8.7) 07/21/24 23:46 Albumin 4.3 g/dL (3.5-5.2) 07/21/24 23:46 Globulin 3.3 g/dL (1.3-4.6) 07/21/24 23:46 XR interpretation done by ED provider, pending radiology final review Discharge Plan Discharge Patient Disposition: Home Clinical Impression: Multiple complaints Condition: Stable Prescriptions: No Action polyethylene glycol 3350 [Gavilax] 17 gram/dose powder PO BID Linzess 145 mcg capsule 145 mcg PO DAILY 30 Days Qty: 30 3RF Zyrtec 10 mg tablet 10 mg PO DAILY Qty: 30 0RF magnesium citrate [Citrate of Magnesia] Solution 300 ml PO DAILY Qty: 296 0RF lactulose 10 gram/15 mL solution 20 g PO BID Qty: 1200 0RF sennosides-docusate sodium 8.6-50 mg tablet 1 tab-cap PO BID PRN (Reason: constipation) Qty: 20 0RF Discharge Orders: Discharge ED (Routine); Ordered 07/22/24 Ordered By: Pam Dickinson Activity Restrictions/Additional Instructions: As we discussed, you were seen for multiple complaints including bilateral shoulder pain, chest pain, neck pain, back pain. You were not found to have any emergent or life-threatening condition. As we discussed, I would like you to reach out to your primary care provider early tomorrow morning to schedule a follow-up visit. You need to return to the emergency department for worsening symptoms or any other concerns you may have. Print Language: French Coding Level of Care Code ED Senior Behavioral Scientist for Alyx Mcpherson
[2024-07-21 23:49] VITALS: BP 124/91; PULSE 75; O2SAT 100
[2024-07-21 23:52] LABS: Basophils % 0.6 %; Eosinophils # 0.4 10^3/uL (0.0-0.8); Eosinophils % 5.2 %; Hematocrit 39.3 % (36-47); Lymphocytes # 2.6 10^3/uL (0.8-4.8); Lymphocytes % 37.2 %; Mean Corpuscular HGB Conc 29.3 g/dL (30-55); Mean Corpuscular Volume 88.7 fl (85-98); Mean Platelet Volume 11.4 fL (7.4-10.4); Monocytes # 0.6 10^3/uL (0.2-0.9); Monocytes % 9.2 %; Neutrophils # 3.31 10^3/uL (1.8-7.7); Neutrophils % 47.5 %; Nucleated Red Blood Cells % 0 %; Platelet Count 200 10^3/cmm (157-399); Red Blood Count 4.43 10^6/uL (3.85-5.65); Red Cell Distribution Width 14.1 % (12.1-15.1); White Blood Count 6.96 10^3/uL (3.29-11.43)
[2024-07-22 00:11] LABS: Troponin(5th) Baseline < 6 ng/L (0-10)
[2024-07-22 00:13] LABS: Alanine Aminotransferase 29 U/L (0-33); Albumin Level 4.3 g/dL (3.5-5.2); Alkaline Phosphatase 98 U/L (35-105); Anion Gap 14.1 (5-19); Aspartate Amino Transferase 29 U/L (0-32); Blood Urea Nitrogen 10 mg/dL (6-20); Carbon Dioxide 21 mmol/L (22-29); Chloride 103 mmol/L (98-107); Creatinine Clr Calc Pharmacy 109.0078; Globulin 3.3 g/dL (1.3-4.6); Glomerular Filtration Rate 131.4 mL/min (90-130); Glucose 96 mg/dL (65-115); Osmolality Calculated 277 mOsm/kg (285-295); Potassium 4.1 mmol/L (3.5-5.1); Sodium 134 mmol/L (136-145); Total Bilirubin 0.3 mg/dL (0.15-1.2); Total Protein 7.6 g/dL (6.6-8.7)
== END 2024-07-22 00:34 | disposition home or self-care (01) ==
PROVIDERS: Emergency Provider Physician Assistant
DX: R07.9 Chest pain, unspecified (principal); M54.2 Cervicalgia; M54.9 Dorsalgia, unspecified; M25.512 Pain in left shoulder; M25.511 Pain in right shoulder
CPT/HCPCS: 36415; 71045; 80053; 84484; 85025; 93005; 99285

== ENCOUNTER → 2024-09-10 17:59 | Outpatient (BNVA) | payer OTHER, SELFPAY | DX: R11.10 Vomiting, unspecified (principal) | CPT/HCPCS: 87400 ==

== ENCOUNTER 2024-11-28 07:46 | Day surgery (SDC) | payer OTHER, MEDICAID, SELFPAY ==
[2024-11-28 08:08] VITALS: BP 125/81; PULSE 85; RESP 18; TEMP 36.4; O2SAT 98; BMI 37.3
--- NOTE | 2024-11-28 08:12 | W.PM.OPSUD ---
Surgery/Procedure H&P Update DATE OF PROCEDURE: November 28, 2024 DATE H&P PERFORMED: 10/31/24 H&P UPDATE INFORMATION: I have reviewed H&P completed within last 30 days, I have examined patient prior to procedure, No changes to prior documentation, Changes to prior documentation as noted here and Risks and benefits of the procedure reviewed PLANNED PROCEDURE: Operation Date: 11/28/24 09:40 Proposed Procedures p Colonoscopy 49020 G0105 K59.00(Not Applicable) - Luther Harris MD
[2024-11-28 08:14] LABS: OR HCG Qualitative Urine Negative (Negative)
--- NOTE | 2024-11-28 08:25 | P.ANESASSM_ITS ---
Pre-Anesthetic Assessment Height/Weight: Height 1.57 m Weight 92.533 kg Temp Pulse Resp BP Pulse Ox O2 Del Method 97.6 F 85 18 125/81 98 Room Air 11/28/24 08:08 11/28/24 08:08 11/28/24 08:08 11/28/24 08:08 11/28/24 08:08 11/28/24 08:08 Operation Date: 11/28/24 09:40 Proposed Procedures p Colonoscopy 35366 G0105 K59.00(Not Applicable) - Luther Harris MD Familial anesthetic complications: None Was Beta Jagdeep taken within 24 hours: N/A Was Clonidine taken within 24 hours: N/A Last intake: Intake Last Liquid Date 11/27/24 Last Liquid Time 22:00 Last Solid Date 11/26/24 Last Solid Time 18:00 Social No alcohol and No tobacco Exam alert, oriented x 3, clear to auscultation bilaterally and regular rate & rhythm Airway Mallampati: Class I Dentition: other (Molars missing) Neuropsych Anxiety Anesthetic Plan ASA status: 1 Anesthesia: MAC Risk of > 500 ml blood loss (7ml/kg in children): No Medications/Allergies Home Medications ?Medication ?Instructions ?Recorded ?Confirmed ?Last Taken ?Type sennosides 8.6 mg-docusate sodium 1 tab-cap PO BID PRN constipation 11/25/23 11/28/24 Unknown Rx 50 mg tablet #20 tabs lactulose 10 gram/15 mL oral 20 g (30 mL) PO BID #1,20 0 mL 07/08/24 11/28/24 1 Month Ago Rx solution ~10/26/24 linaclotide 145 mcg capsule 145 mcg PO DAILY 30 days # 30 caps 07/09/24 11/28/24 11/27/24 Rx (Linzess) polyethylene glycol 3350 17 17 g PO BID 07/09/2411/28 1 Month Ago History gram/dose oral powder (Gavilax) ~10/07 06/01 Allergies Allergy/AdvReac Type Severity Reaction Status Date / Time nut - unspecified Allergy ADR-Itching Verified 11/28/24 08:06 tree nut Allergy itchy Verified 11/25/24 09:57 throat Current Medications Generic Name Dose Route Start Last Admin Trade Name Freq PRN Reason Stop Dose Admin Sodium Chloride 1,000 mls @ 30 mls/hr 11/28/24 08:15 11/28/24 08:14 Sodium Chloride 0.9% IV 11/29/24 08:14 30 mls/hr .Q24H MERVIN Administration PFSH Anesthesia Social History Smoking and tobacco/nicotine status: former use of tobacco/nicotine Female Reproductive History Date of last menstrual period: 11/18/24
[2024-11-28 09:57] VITALS: BP 116/64; PULSE 85; RESP 12; TEMP 36.6; O2SAT 98
--- NOTE | 2024-11-28 10:15 | ANE.PACU2 ---
Inpatient post-anesthesia follow up: Airway intact: Yes Vital signs: Temperature 97.9 F Pulse Rate 82 Respiratory Rate 16 Blood Pressure 121/96 Pulse Oximetry 100 Oxygen Delivery Me thod Room Air Oxygen Flow Rate Fraction of Inspir ed Oxygen Hydration adequate: Yes Nausea and vomiting: No Pain level: 1 Mental status: Baseline
[2024-11-28 10:26] VITALS: BP 121/96; PULSE 82; RESP 16; O2SAT 100
== END 2024-11-28 10:16 | disposition home or self-care (01) ==
PROVIDERS: Anesthesiology; Visit Provider Surgery
PROC: 0DJD8ZZ Inspection of Lower Intestinal Tract, Via Natural or Artificial Opening Endoscopic (ICD-10-PCS; CPT 45378; principal; 2024-11-28 09:40)
DX: K59.04 Chronic idiopathic constipation (principal); Z79.899 Other long term (current) drug therapy; Z87.891 Personal history of nicotine dependence
CPT/HCPCS: 45378; 81025; J2704; J7030

== ENCOUNTER 2025-03-27 10:21 | Outpatient (CLI) | payer OTHER, MEDICAID, SELFPAY ==
--- NOTE | 2025-03-27 10:20 | MM_ITS ---
WS: [email or web address] VIEWS: MLO and CC views both breasts. 3D digital tomosynthesis is also included in this exam. No comparisons. Findings: There are scattered areas of fibroglandular density. A 2.2 x 1.4 cm partially obscured ovoid nodule is seen in the upper outer quadrant of the RIGHT breast at about the 10 o'clock position at mid to posterior depth. Some margins appear slightly irregular. No other discrete finding in the RIGHT breast. The LEFT breast was unremarkable. No suspicious calcification in either breast. Regional ultrasound of the upper outer quadrant of the RIGHT breast is indicated for further work-up. MM/MM scr BI tomosynthesis [id number] Impression: BI-RADS: 0 - Incomplete: Need additional imaging evaluation FOLLOW-UP: See Report This mammogram was also analyzed by the Computer Aided Detection System R2 Imag e Machine Stitcher.
== END 2025-03-27 10:22 | disposition home or self-care (01) ==
LOC: MOBLMAM 10:24
DX: Z12.31 Encounter for screening mammogram for malignant neoplasm of breast (principal); N63.11 Unspecified lump in the right breast, upper outer quadrant; R92.323 Mammographic fibroglandular density, bilateral breasts
CPT/HCPCS: 77063; 77067

== ENCOUNTER 2025-05-05 10:31 | Outpatient (CLI) | payer OTHER, MEDICAID, SELFPAY ==
--- NOTE | 2025-05-05 11:01 | US_ITS ---
WS: [id number] Right breast ultrasound, 05/05/2025 Clinical Data: ABNORMAL MAMMOGRAM OF RT BREAST Comparison: Mammogram, 04/04/2025 Findings: The upper outer quadrant of the right breast was examined. Only normal breast tissue could be seen. There were no cysts or masses. US/US breast RT limited* [id number] Impression: 1. Normal right breast ultrasound. 2. Return to annual screening mammograms. BIRADS: 1 - Negative. FOLLOW UP: See Report
== END 2025-05-05 10:32 | disposition home or self-care (01) ==
DX: R92.8 Other abnormal and inconclusive findings on diagnostic imaging of breast (principal)
CPT/HCPCS: 76642